=== PATIENT | female | born 1955 | race Caucasian/White ===

== ENCOUNTER 2017-02-04 11:00 | Outpatient (RCR) | payer BC | END 2017-03-15 | disposition home or self-care (01) | LOC: WSST | DX: R49.8 Other voice and resonance disorders (principal) ==

== ENCOUNTER → 2017-08-11 | Outpatient (CLI) | payer BC | LOC: MC.RAD 13:31 | DX: Z12.31 Encounter for screening mammogram for malignant neoplasm of breast (principal) ==

== ENCOUNTER → 2018-11-08 | Outpatient (CLI) | payer BC | LOC: COL.RAD 12:14 | DX: H53.9 Unspecified visual disturbance (principal) | CPT/HCPCS: A9585 ==